=== PATIENT | male | born 1975 | race Caucasian/White ===

== ENCOUNTER 2017-01-08 14:15 | Emergency (ER) | payer OTHER | END 2017-01-08 17:53 | disposition home or self-care (01) | LOC: ER 14:15 | DX: S06.0X9A Concussion with loss of consciousness of unspecified duration, initial encounter (principal); S63.502A Unspecified sprain of left wrist, initial encounter; W22.8XXA Striking against or struck by other objects, initial encounter | CPT/HCPCS: 70450; 73110-LT; 99284; A9270-GY ==